=== PATIENT | female | born 1970 | race Hispanic/Latino ===

== ENCOUNTER 2023-10-30 20:08 | Emergency (ER) | payer SELFPAY ==
[2023-10-30 21:34] LABS: Absolute Basophils 0.1 K/uL (0-0.5); Absolute Eosinophils 0.3 K/uL (0-0.5); Absolute Lymphocytes (CBC) 4.1 K/uL (0.7-4.9); Absolute Monocytes 0.5 K/uL (0.1-1.3); Absolute Neutrophil 2.9 K/uL (1.8-8.0); Basophils % 1.4 % (0-1.3); Eosinophils % 4.1 % (0-4.4); Hematocrit 38.2 % (36.0-45.0); Lymphocytes % 51.7 % (15.3-44.8); MCHC 34.1 g/dL (32.0-36.0); MPV 8.7 fL (7.6-11.3); Monocytes % 6.5 % (3.3-12.3); Neutrophils % 36.3 % (41.7-73.7); Nucleated Red Blood Cells % 0.1 % (0-0); Platelets 256 thou/uL (152-406); RBC Red Blood Cell Count 4.19 M/uL (3.86-4.86); Red Cell Distribution Width 13.1 % (12.1-15.2)
[2023-10-30] MEDS ORDERED: ALBUTEROL 2.5 MG/3 ML NEB SOL ONE (21:43)
[2023-10-30] MEDS ORDERED: NA CHLORIDE 0.9% 1,000 ML ONE (21:44)
[2023-10-30] MEDS ORDERED: MECLIZINE HCL 12.5 MG TAB ONE (21:44)
[2023-10-30] MEDS ORDERED: IPRATROPIUM BROM 0.5MG/2.5ML ONE (21:44)
[2023-10-30 21:45] LABS: ALT/SGPT 21 U/L (13-56); AST/SGOT 13 U/L (15-37); Albumin 3.6 g/dL (3.4-5.0); Alkaline Phosphatase 118 U/L (45-117); Anion Gap 8.9 mEq/L (5.0-15.0); BUN Blood Urea Nitrogen 18 mg/dL (7-18); Bicarbonate 25 mEq/L (21-32); Bilirubin Total 0.3 mg/dL (0.2-1.0); Globulin 3.7 g/dL (2.3-3.5); Glomerular Filtration Rate 85 ml/min (=/>90); Glucose Level 112 mg/dL (74-106); Magnesium 1.8 mg/dL (1.6-2.4); Potassium 3.9 mEq/L (3.5-5.1); Protein, Total 7.3 g/dL (6.4-8.2); Sodium Level 137 mEq/L (136-145)
[2023-10-30 21:46] LABS: Bilirubin Direct < 0.2 mg/dL (0-0.2); Bilirubin Indirect, Calculated 0.1 mg/dL (0.2-0.8); Troponin High Sensitivity < 3.0 pg/mL (<58.9)
--- NOTE | 2023-10-30 21:56 | RAD REPORT ---
EXAM DESCRIPTION: Cedric Single View10/30/2023 9:19 pm CLINICAL HISTORY: sob COMPARISON: none FINDINGS: The lungs appear clear of acute infiltrate. The heart is normal size IMPRESSION: No acute abnormalities displayed
--- NOTE | 2023-10-30 22:06 | RAD REPORT ---
EXAM DESCRIPTION: CT - Head Brain Wo Cont - 10/30/2023 9:59 pm CLINICAL HISTORY: Dizziness COMPARISON: none TECHNIQUE: Computed axial tomography of the head was obtained. IV contrast was not requested. All CT scans are performed using dose optimization technique as appropriate and may include automated exposure control or mA/KV adjustment according to patient size. FINDINGS: An intracranial bleed is not seen The ventricles are normal in caliber No significant hypodense areas within the brain visualized No extra-axial fluid collection is noted. Fluid within the sinuses/ mastoids is not seen IMPRESSION: No acute intracranial abnormality is seen If patient's symptoms persist MRI of the brain would be recommended
[2023-10-30] MEDS ORDERED: ACETAMINOPHEN 500 MG TAB ONE (22:27)
--- NOTE | 2023-10-30 23:20 | ER ---
Nurse's Notes [facility] Name: Jessie Sorto Age: 53 yrs Sex: Female : 1970 Arrival Date: 10/30/2023 Time: 20:08 Bed 5 Private MD: Diagnosis: Benign paroxysmal vertigo;Headache Presentation: 10/29 20:23 Chief complaint: Spouse and/or significant other states: headache, dizziness, low blood as6 pressure. Coronavirus screen: At this time, the client does not indicate any symptoms associated with coronavirus-19. Ebola Screen: No symptoms or risks identified at this time. Initial Sepsis Screen: Does the patient meet any 2 criteria? No. Patient's initial sepsis screen is negative. Does the patient have a suspected source of infection? No. Patient's initial sepsis screen is negative. Risk Assessment: Do you want to hurt yourself or someone else? Patient reports no desire to harm self or others. Onset of symptoms was October 30, 2023. 20:23 Method Of Arrival: Ambulatory as6 20:23 Acuity: WAGNER 3 as6 Historical: - Allergies: 20:24 No Known Allergies; as6 - PMHx: 20:24 Headache; as6 - PSHx: 20:24 None; as6 - Immunization history:: Adult Immunizations up to date. - Infectious Disease History:: Denies. - Social history:: Smoking status: Patient denies any tobacco usage or history of. - Family history:: not pertinent. Screenin:54 [facility] ED Fall Risk Assessment (Adult) History of falling in the last 3 months, vc1 including since admission No falls in past 3 months (0 pts) Confusion or Disorientation No (0 pts) Intoxicated or Sedated No (0 pts) Impaired Gait No (0 pts) Mobility Assist Device Used No (0 pt) Altered Elimination No (0 pt) Score/Fall Risk Level 0 - 2 = Low Risk Oriented to surroundings, Maintained a safe environment, Educated pt \T\ family on fall prevention, incl call for assistance when getting out of bed. Abuse screen: Denies threats or abuse. Nutritional screening: No deficits noted. Tuberculosis screening: No symptoms or risk factors identified. Assessment: 20:40 General: Appears in no apparent distress. uncomfortable, Behavior is calm, cooperative. lg3 Pain: Complains of pain in head Pain does not radiate. Neuro: No deficits noted. Chapman Agitation-Sedation Scale (RASS): 0 - Alert and Calm Level of Consciousness is awake, alert, obeys commands, Oriented to person, place, time, situation, Reports dizziness, headache weakness. Cardiovascular: No deficits noted. Reports palpitations, shortness of breath, Heart tones S1 S2 present Capillary refill < 3 seconds Clubbing of nail beds is absent JVD is absent Patient's skin is warm and dry. Respiratory: No deficits noted. Reports shortness of breath Airway is patent Respiratory effort is even, unlabored, Respiratory pattern is regular, symmetrical, Breath sounds are clear bilaterally. GI: No deficits noted. No signs and/or symptoms were reported involving the gastrointestinal system. Abdomen is round non-distended. : No deficits noted. No signs and/or symptoms were reported regarding the genitourinary system. EENT: No deficits noted. No signs and/or symptoms were reported regarding the EENT system. Derm: No deficits noted. No signs and/or symptoms reported regarding the dermatologic system. Skin is intact, is healthy with good turgor, Skin is dry, Skin is normal, Skin temperature is warm. Musculoskeletal: No deficits noted. No signs and/or symptoms reported regarding the musculoskeletal system. Circulation, motion, and sensation intact. Range of motion: intact in all extremities. 22:45 Reassessment: Patient appears in no apparent distress at this time. No changes from lg3 previously documented assessment. Patient and/or family updated on plan of care and expected duration. Pain level reassessed. Patient is alert, oriented x 3, equal unlabored respirations, skin warm/dry/pink. 23:53 Reassessment: Patient appears in no apparent distress at this time. No changes from lg3 previously documented assessment. Patient and/or family updated on plan of care and expected duration. Pain level reassessed. Patient is alert, oriented x 3, equal unlabored respirations, skin warm/dry/pink. Patient states symptoms have improved. Vital Signs: 20:23 BP 117 / 74; Pulse 55; Resp 18 S; Temp 97.9(TE); Pulse Ox 99% on R/A; Weight 86.18 kg as6 (R); Height 5 ft. 2 in. (R); Pain 0/10; 21:17 BP 110 / 61; Pulse 56; Resp 10; Pulse Ox 97% on R/A; Pain 8/10; wm 21:55 BP 109 / 66; Pulse 54; Resp 13; Pulse Ox 97% ; vc1 23:53 BP 110 / 61; Pulse 70; Resp 17 S; Temp 98.1(O); Pulse Ox 100% on R/A; lg3 20:23 Body Mass Index 33.67 (86.18 kg, 160 cm) as6 20:23 Pain Scale: Adult as6 21:17 Pain Scale: Adult ED Course: 20:12 Patient arrived in ED. gm2 20:21 Matthew Spears MD is Attending Physician. rt 20:24 Triage completed. as6 20:25 Arm band placed on. as6 20:40 Door closed. Noise minimized. Warm blanket given. Family accompanied patient. lg3 20:45 EKG done, by ED staff, reviewed by Matthew Spears MD. wm 21:00 Inserted saline lock: 22 gauge in left antecubital area, using aseptic technique. Blood wm collected. 21:14 Basic Metabolic Panel Sent. wm 21:14 CBC with Diff Sent. wm 21:14 LFT's Sent. wm 21:14 Magnesium Sent. wm 21:14 Troponin HS Sent. wm 21:19 XRAY Chest (1 view) In Process Unspecified. EDMS 21:55 Patient has correct armband on for positive identification. Bed in low position. Call vc1 light in reach. Pulse ox on. NIBP on. 22:01 CT Head Brain wo Cont In Process Unspecified. EDMS 22:02 Nimisha Sanchez, RN is Primary Nurse. vc1 23:54 No provider procedures requiring assistance completed. IV discontinued, intact, lg3 bleeding controlled, No redness/swelling at site. Pressure dressing applied. Administered Medications: 21:21 CANCELLED (Physician Discretion): Albuterol-Ipratropium Inhaler 103 mcg (90 mcg)-18 lg3 mcg/actuation Aerosol 3 puffs Inhalation once 22:02 Drug: NS 0.9% IV 1000 ml IV at 1 bolus Per protocol; 1000 mL bolus Route: IV; Rate: 1 vc1 bolus; Site: left antecubital; 23:54 Follow up: IV Status: Completed infusion; IV Intake: 1000ml lg3 22:02 Drug: DuoNeb Nebulize (3:1) (2.5 mg - 0.5 mg) 3 ml Nebulizer once Route: Nebulizer; vc1 23:54 Follow up: Response: No adverse reaction lg3 22:03 Drug: Meclizine PO 50 mg PO once Route: PO; vc1 23:54 Follow up: Response: No adverse reaction; Marked relief of symptoms lg3 22:29 Drug: Acetaminophen PO 1000 mg PO once Route: PO; lg3 23:54 Follow up: Response: No adverse reaction; Marked relief of symptoms lg3 Medication: 21:55 VIS not applicable for this client. vc1 Intake: 23:54 IV: 1000ml; Total: 1000ml. lg3 Outcome: 23:19 Discharge ordered by . rt 23:55 Discharged to home ambulatory, with family, lg3 23:55 Condition: stable 23:55 Discharge instructions given to patient, Instructed on discharge instructions, follow up and referral plans. medication usage, Demonstrated understanding of instructions, follow-up care, medications, Prescriptions given X 1, 23:55 Patient left the ED. lg3 Signatures: Dispatcher [employer] EDMS Aliya Waldron RN RN lg3 Megan Alejandro Ashby, RN RN as6 Nimisha Sanchez RN RN vc1 Matthew Spears MD MD rt Ayanna Wiggins 2 Corrections: (The following items were deleted from the chart) 21:56 21:55 BP 108 / 39; Pulse 52bpm; Resp 13bpm; Pulse Ox 97%; vc1 vc1
--- NOTE | 2023-10-30 23:20 | EDPHYS ---
Physician Documentation [facility] Name: Jessie Sorto Age: 53 yrs Sex: Female : 1970 Arrival Date: 10/30/2023 Time: 20:08 Bed 5 Private MD: ED Physician Matthew Spears HPI: 10/29 21:59 This 53 yrs old Female presents to ER via Ambulatory with complaints of Heart rt palpitations dizziness blood pressure problem. 21:59 Patient presents to the ED with dizziness described as vertigo as well as palpitations, rt shortness of breath and headache. Patient states that her symptoms have mostly resolved, she only reports mild shortness of breath currently. She denies chest pain. Denies other acute complaints, symptoms are moderate in severity, no other aggravating or elevating factors.. Historical: - Allergies: 20:24 No Known Allergies; as6 - PMHx: 20:24 Headache; as6 - PSHx: 20:24 None; as6 - Immunization history:: Adult Immunizations up to date. - Infectious Disease History:: Denies. - Social history:: Smoking status: Patient denies any tobacco usage or history of. - Family history:: not pertinent. ROS: 21:59 Constitutional: Negative for fever, chills, and weight loss, Cardiovascular: Negative rt for chest pain, palpitations, and edema, Abdomen/GI: Negative for abdominal pain, nausea, vomiting, diarrhea, and constipation, MS/Extremity: Negative for injury and deformity, Skin: Negative for injury, rash, and discoloration, Psych: Negative for depression, anxiety, suicide ideation, homicidal ideation, and hallucinations, 21:59 Respiratory: Positive for shortness of breath, Negative for cough, 21:59 Neuro: Positive for dizziness, Negative for loss of consciousness, Exam: 21:59 Constitutional: This is a well developed, well nourished patient who is awake, alert, rt and in no acute distress. Head/Face: Normocephalic, atraumatic. Chest/axilla: Normal chest wall appearance and motion. Nontender with no deformity. No lesions are appreciated. Cardiovascular: Regular rate and rhythm with a normal S1 and S2. No gallops, murmurs, or rubs. Normal PMI, no JVD. No pulse deficits. Respiratory: Lungs have equal breath sounds bilaterally, clear to auscultation and percussion. No rales, rhonchi or wheezes noted. No increased work of breathing, no retractions or nasal flaring. Abdomen/GI: Soft, non-tender, with normal bowel sounds. No distension or tympany. No guarding or rebound. No evidence of tenderness throughout. 21:59 Eyes: Extraocular muscles are intact, 2-3 beats of Ryeqo nystagmus, head impulse and test of skew negative. 21:59 ECG was reviewed by the Attending Physician. 21:59 Neuro: Current nerves II through XII intact, strength and sensation intact in upper and lower extremities, speech normal, no ataxia on [id number], Vital Signs: 20:23 BP 117 / 74; Pulse 55; Resp 18 S; Temp 97.9(TE); Pulse Ox 99% on R/A; Weight 86.18 kg as6 (R); Height 5 ft. 2 in. (R); Pain 0/10; 21:17 BP 110 / 61; Pulse 56; Resp 10; Pulse Ox 97% on R/A; Pain 8/10; wm 21:55 BP 109 / 66; Pulse 54; Resp 13; Pulse Ox 97% ; vc1 23:53 BP 110 / 61; Pulse 70; Resp 17 S; Temp 98.1(O); Pulse Ox 100% on R/A; lg3 20:23 Body Mass Index 33.67 (86.18 kg, 160 cm) as6 20:23 Pain Scale: Adult as6 21:17 Pain Scale: Adult wm MDM: 20:33 Patient medically screened. rt 10/30 01:12 Differential Diagnosis Peripheral vertigo, dehydration. Data reviewed: vital signs, rt nurses notes, lab test result(s), EKG, radiologic studies. Consideration of Admission/Observation Escalation of care including admission/observation considered. Symptoms consistent with a peripheral vertigo, no signs or symptoms suggestive of acute CVA. Does not require admission, workup is benign, patient symptoms have resolved with treatment in the ED.. I considered the following discharge prescriptions or medication management in the emergency department Medications were administered in the Emergency Department. See MAR. Independent interpretation of the following test(s) in the Emergency Department CT Scan: My interpretation is No intracranial hemorrhage seen on interpretation of CT scan images. Counseling: I had a detailed discussion with the patient and/or guardian regarding the historical points, exam findings, and any diagnostic results supporting the discharge/admit diagnosis, lab results, radiology results, the need for outpatient follow up, to return to the emergency department if symptoms worsen or persist or if there are any questions or concerns that arise at home. Response to treatment: the patient's symptoms have markedly improved after treatment. 10/29 20:39 Order name: Basic Metabolic Panel; Complete Time: 21:48 rt 10/29 20:39 Order name: CBC with Diff; Complete Time: 21:48 rt 10/29 20:39 Order name: LFT's; Complete Time: 21:48 rt 10/29 20:39 Order name: Magnesium; Complete Time: 21:48 rt 10/29 20:39 Order name: Troponin HS; Complete Time: 21:48 rt 10/29 20:39 Order name: XRAY Chest (1 view); Complete Time: 22:07 rt 10/29 20:39 Order name: CT Head Brain wo Cont; Complete Time: 22:07 rt 10/29 20:39 Order name: EKG; Complete Time: 20:39 rt 10/29 20:39 Order name: Cardiac monitoring; Complete Time: 21:13 rt 10/29 20:39 Order name: EKG - Nurse/Tech; Complete Time: 21:13 rt 10/29 20:39 Order name: IV Saline Lock; Complete Time: 21:13 rt 10/29 20:39 Order name: Labs collected and sent; Complete Time: 21:14 rt 10/29 20:39 Order name: O2 Per Protocol; Complete Time: 22:03 rt 10/29 20:39 Order name: O2 Sat Monitoring; Complete Time: 21:14 rt EC/15 21:59 Rate is 58 beats/min. Rhythm is regular, Sinus bradycardia with No ectopy. QRS [place] is rt Normal. [place] interval is normal. QRS interval is normal. QT interval is normal. No Q waves. No ST changes noted. Interpreted by me. Administered Medications: 21:21 CANCELLED (Physician Discretion): Albuterol-Ipratropium Inhaler 103 mcg (90 mcg)-18 lg3 mcg/actuation Aerosol 3 puffs Inhalation once 22:02 Drug: NS 0.9% IV 1000 ml IV at 1 bolus Per protocol; 1000 mL bolus Route: IV; Rate: 1 vc1 bolus; Site: left antecubital; 23:54 Follow up: IV Status: Completed infusion; IV Intake: 1000ml lg3 22:02 Drug: DuoNeb Nebulize (3:1) (2.5 mg - 0.5 mg) 3 ml Nebulizer once Route: Nebulizer; vc1 23:54 Follow up: Response: No adverse reaction lg3 22:03 Drug: Meclizine PO 50 mg PO once Route: PO; vc1 23:54 Follow up: Response: No adverse reaction; Marked relief of symptoms lg3 22:29 Drug: Acetaminophen PO 1000 mg PO once Route: PO; lg3 23:54 Follow up: Response: No adverse reaction; Marked relief of symptoms lg3 Disposition Summary: 10/30/23 23:19 Discharge Ordered Notes: Location: Home rt Problem: new rt Symptoms: have improved rt Condition: Stable rt Diagnosis - Benign paroxysmal vertigo rt - Headache rt Followup: rt - With: Private Physician - When: 2 - 3 days - Reason: Discharge Instructions: - Discharge Summary Sheet rt - Benign Positional Vertigo rt - Migraine Headache rt Forms: - Medication Reconciliation Form rt - Antibiotic Education rt - Prescription Opioid Use rt - Patient Portal Instructions rt - Leadership Thank You Letter rt Prescriptions: - Meclizine 25 mg Oral Tablet - take 1 tablet ORAL route every 8 hours As needed; 30 tablet; Refills: 0, rt Product Selection Permitted Signatures: Dispatcher [employer] EDAliya Francisco RN RN lg3 Eris Garrison RN RN as6 Nimisha Sanchez RN RN vc1 Matthew Spears MD MD rt Corrections: (The following items were deleted from the chart) 21:21 20:39 Albuterol-Ipratropium Inhaler 103 mcg (90 mcg)-18 mcg/actuation Aerosol 103 mcg lg3 (90 mcg)-18 mcg/actuation 3 puffs Inhalation once ordered. rt
[2023-10-31 00:48] VITALS: BP 110/61; TEMP 98.1; O2SAT 100
== END 2023-10-30 23:55 | disposition home or self-care (01) ==
LOC: ER 20:08
DX: H81.10 Benign paroxysmal vertigo, unspecified ear (principal); R51.9 Headache, unspecified
CPT/HCPCS: 36415; 70450; 71045; 80048; 80076; 83735; 84484; 85025; 93005; J7030; J7613; J7644; J8597

== ENCOUNTER 2024-07-20 16:39 | Emergency (ER) | payer OTHER ==
--- NOTE | 2024-07-20 17:45 | RAD REPORT ---
EXAM: Chest Single View HISTORY: Cough;Congestion COMPARISON: 10/30/2023 FINDINGS: LUNGS/PLEURA: Airspace disease at the left lung base. MEDIASTINUM: The mediastinal silhouette is within normal limits. CARDIAC: The cardiac silhouette is within normal limits. UPPER ABDOMEN: No significant abnormality. BONES: No acute abnormality. LINES/TUBES/OTHER: N/A IMPRESSION: Airspace disease at left lung base concerning for pneumonia. Suggest 6-8 week follow-up chest radiogr aph to ensure resolution.
[2024-07-20 19:32] LABS: Absolute Basophils 0.1 K/uL (0-0.5); Absolute Lymphocytes (CBC) 1.4 K/uL (0.7-4.9); Absolute Neutrophil 13.3 K/uL (1.8-8.0); Basophils % 0.5 % (0-1.3); Hematocrit 35.5 % (36.0-45.0); Hemoglobin 12.6 g/dL (12.0-15.0); Lymphocytes % 8.9 % (15.3-44.8); MCH 31.3 pg (27.0-35.0); MCHC 35.4 g/dL (32.0-36.0); MCV 88.4 fL (80-100); MPV 8.8 fL (7.6-11.3); Monocytes % 6.2 % (3.3-12.3); Neutrophils % 84.4 % (41.7-73.7); Platelets 208 thou/uL (152-406); RBC Red Blood Cell Count 4.01 M/uL (3.86-4.86); Red Cell Distribution Width 12.9 % (12.1-15.2)
[2024-07-20 19:48] LABS: PT Prothrombin Time 13.1 SECONDS (9.4-12.5); PTT, Activated Partial Thromb 31.6 SECONDS (24.3-36.9); Protime INR 1.25
[2024-07-20 19:55] LABS: Albumin 3.4 g/dL (3.4-5.0); Albumin/Globulin Ratio 0.9 (1.1-1.8); Anion Gap 8.7 mEq/L (5.0-15.0); Bilirubin Total 0.8 mg/dL (0.2-1.0); Globulin 3.9 g/dL (2.3-3.5); Potassium 3.7 mEq/L (3.5-5.1); Protein, Total 7.3 g/dL (6.4-8.2)
[2024-07-20 20:26] LABS: SARS-CoV-2 Antigen CONTROL BLUE LINE VIS/BG OK; SARS-CoV-2 Antigen Rapid Res Negative (Negative)
[2024-07-20] MEDS ORDERED: ACETAMINOPHEN 500 MG TAB ONE (20:57)
[2024-07-20] MEDS ORDERED: CEFTRIAXONE 1000 MG/VIAL ONE (20:57)
[2024-07-20] MEDS ORDERED: ONDANSETRON 4 MG/2 ML VIAL ONE (20:57)
[2024-07-20] MEDS ORDERED: NA CHLORIDE 0.9% 1,000 ML ONE (20:58)
[2024-07-20] MEDS ORDERED: AZITHROMYCIN 250 MG TAB ONE (20:58)
--- NOTE | 2024-07-20 22:09 | EDPHYS ---
Physician Documentation [facility] Name: Jessie Sorto Age: 53 yrs Sex: Female : 1970 Arrival Date: 07/20/2024 Time: 16:39 Bed DX2 Private MD: ED Physician Tank Bunn HPI: 07/20 17:02 This 53 yrs old Female presents to ER via Ambulatory with complaints of Flu kb Symptoms. 17:03 Pt is a 53 year old female who presents for cough, congestion, fever, headache, kb bodyaches, and vomiting that started one week ago. Family member is also sick with similar symptoms. Reports pain to left lower chest with cough. Denies shortness of breath. Historical: - Allergies: 17:02 No Known Allergies; hb - PMHx: 17:02 headache; hb - Immunization history:: Adult Immunizations up to date. - Infectious Disease History:: Denies. - Social history:: Smoking status: Patient denies any tobacco usage or history of. ROS: 17:04 Constitutional: As per HPI kb Exam: 17:04 Constitutional: This is a well developed, well nourished patient who is awake, alert, kb and in no acute distress. Head/Face: Normocephalic, atraumatic. ENT: Moist Mucous membranes Cardiovascular: Regular rate Respiratory: Respirations even and unlabored. No increased work of breathing. Talking in full sentences Abdomen/GI: Soft, non-tender. No distention Skin: Warm, dry with normal turgor. Normal color. MS/ Extremity: Pulses equal, no cyanosis. Neurovascular intact. Full, normal range of motion. Neuro: Awake and alert, GCS 15, oriented to person, place, time, and situation. 22:09 ECG was reviewed by the Attending Physician. kb Vital Signs: 17:00 BP 110 / 66; Pulse 87; Resp 18; Temp 103.2(O); Pulse Ox 96% on R/A; Weight 83.91 kg; hb Height 5 ft. 4 in. ; Pain 5/10; 21:44 BP 105 / 61; Pulse 77; Resp 18 S; Temp 99.2(O); Pulse Ox 100% on R/A; ha1 17:00 Body Mass Index 31.75 (83.91 kg, 162.56 cm) hb 17:00 Pain Scale: Adult hb MDM: 16:48 Medical Screening Exam initiated kb 17:04 Data reviewed: vital signs, nurses notes. kb 22:07 Differential Diagnosis: Bronchitis Influenza Upper Respiratory Infection Pneumonia. kb Consideration of Admission/Observation Escalation of care including admission/observation considered. admission considered for pneumonia. Resp even and unlabored. oxygen 100% on room air. Pt is nontoxic in appearance. Will give oral antibiotics. Pt educated on return precautions. . Counseling: I had a detailed discussion with the patient and/or guardian regarding the historical points, exam findings, and any diagnostic results supporting the discharge/admit diagnosis, lab results, radiology results, the need for outpatient follow up, a family practitioner, to return to the emergency department if symptoms worsen or persist or if there are any questions or concerns that arise at home. 07/20 17:01 Order name: Blood Culture Adult (2) kb 07/20 17:01 Order name: CBC with Diff; Complete Time: 20:08 kb 07/20 17:01 Order name: CMP; Complete Time: 19:57 kb 07/20 17:01 Order name: Lactate w/ 2H reflex if indic.; Complete Time: 20:18 kb 07/20 17:01 Order name: Protime (+inr); Complete Time: 19:49 kb 07/20 17:01 Order name: Ptt, Activated; Complete Time: 19:49 kb 07/20 17:01 Order name: Flu; Complete Time: 20:26 kb 07/20 17:01 Order name: SARS-COV-2 Antigen Rapid; Complete Time: 20:26 kb 07/20 17:01 Order name: Chest Single View XRAY; Complete Time: 17:48 kb 07/20 17:01 Order name: Accucheck; Complete Time: 19:22 kb 07/20 17:01 Order name: EKG - Nurse/Tech; Complete Time: 22:01 kb 07/20 17:01 Order name: IV Saline Lock - Large Bore; Complete Time: 19:22 kb 07/20 17:01 Order name: Labs collected and sent; Complete Time: 19:22 kb 07/20 17:01 Order name: O2 Per Protocol; Complete Time: 19:22 kb 07/20 17:01 Order name: O2 Sat Monitoring; Complete Time: 19:22 kb 07/20 17:01 Order name: Vital Signs; Complete Time: 19:22 kb EC:09 Rate is 75 beats/min. Rhythm is regular. QRS [place] is Normal. [place] interval is normal at kb 158 msec. QRS interval is normal at 100 msec. QT interval is normal at 435 msec. Administered Medications: 20:40 Drug: Acetaminophen PO 1000 mg PO once Route: PO; ha1 20:47 CANCELLED (Duplicate Order): [id number] mg IVPB once over 1 hrs; mix in 250 mL NS kb 21:03 Drug: Ondansetron IVP 4 mg IVP once; over 2 minutes Route: IVP; Site: right antecubital;ha1 21:08 Drug: NS 0.9% IV 1000 ml IV at 1000 ml once; to be given as a bolus over 60 minutes ha1 Route: IV; Rate: 1000 ml; Site: right antecubital; 21:08 Drug: Rocephin IV 1 grams IV at calculated rate once; Given slow IV push per pharmacy ha1 instructions Route: IV; Rate: calculated rate; Site: right antecubital; 21:08 Drug: AZITHromycin PO 500 mg PO once Route: PO; ha1 Disposition Summary: 07/20/24 22:08 Discharge Ordered Notes: Location: Home kb Condition: Stable kb Diagnosis - Pneumonia, unspecified organism kb Followup: kb - With: Emergency Department - When: As needed - Reason: Worsening of condition Followup: kb - With: Private Physician - When: 2 - 3 days - Reason: Recheck today's complaints, Continuance of care, Re-evaluation by your physician Discharge Instructions: - Discharge Summary Sheet kb - Community-Acquired Pneumonia, Adult, [id number] kb Forms: - Medication Reconciliation Form kb - Antibiotic Education kb - Prescription Opioid Use kb - Patient Portal Instructions kb - Leadership Thank You Letter kb Prescriptions: - Zofran 4 mg Oral tablet - take 1 tablet ORAL route every 6 hours As needed; 12 tablet; Refills: 0, kb Product Selection Permitted - Zithromax 500 mg Oral Tablet - take 1 tablet ORAL route once daily for 5 days; 5 tablet; Refills: 0, Product kb Selection Permitted Addendum: 07/22/2024 17:32 I was immediately available for consultation during this patient's visit. I did not e c2 personally see the patient or discuss the patient with the MODESTA. . Signatures: Dispatcher [employer] Chitra Rodriguez, [employer]-C [employer] SE[employer]-Ckb Pilar Saenz, RN RN Dior Foley, COLLEEN RN ha1 Tank Bunn MD MD ec2 Corrections: (The following items were deleted from the chart) 07/20 17:02 17:02 BLOOD CULTURE*+BA.LAB.BRZ ordered. EDMS EDMS 17: 17:02 CBC+H.LAB.BRZ ordered. EDMS EDMS 17: 17:02 COMPREHENSIVE METABOLIC PANEL+C.LAB.BRZ ordered. EDMS EDMS 17: 17:02 LACTATE+C.LAB.BRZ ordered. EDMS EDMS 17: 17:02 PROTIME (+INR)+COAG.LAB.BRZ ordered. EDMS EDMS 17: 17:02 PTT, ACTIVATED+COAG.LAB.BRZ ordered. EDMS EDMS 17:02 17:02 Influenza Screen (A \T\ B)+BA.LAB.BRZ ordered. EDMS EDMS 17:02 17:02 SARS-COV-2 Antigen Rapid+I.LAB.BRZ ordered. EDMS EDMS 17:02 17:02 Chest Single View+RAD.RAD.BRZ ordered. EDMS EDMS 20:47 19:50 Zithromax IVPB 500 mg IVPB once over 1 hrs; mix in 250 mL NS ordered. kb kb
--- NOTE | 2024-07-20 22:09 | ER ---
Nurse's Notes [facility] Name: Jessie Sorto Age: 53 yrs Sex: Female : 1970 Arrival Date: 07/20/2024 Time: 16:39 Bed DX2 Private MD: Diagnosis: Pneumonia, unspecified organism Presentation: 07/20 17:00 Chief complaint: Headache, painful cough, fever, body aches, and N/V x 1 week. hb Coronavirus screen: Client presents with at least one sign or symptom that may indicate coronavirus-19. Standard/surgical mask placed on the client. Provider contacted for isolation considerations. Ebola Screen: No symptoms or risks identified at this time. Initial Sepsis Screen: Does the patient meet any 2 criteria? No. Patient's initial sepsis screen is negative. Does the patient have a suspected source of infection? No. Patient's initial sepsis screen is negative. Risk Assessment: Do you want to hurt yourself or someone else? Patient reports no desire to harm self or others. Onset of symptoms was July 13, 2023. 17:00 Method Of Arrival: Ambulatory hb 17:00 Acuity: WAGNER 3 hb Historical: - Allergies: 17:02 No Known Allergies; hb - PMHx: 17:02 headache; hb - Immunization history:: Adult Immunizations up to date. - Infectious Disease History:: Denies. - Social history:: Smoking status: Patient denies any tobacco usage or history of. Screenin:57 [facility] ED Fall Risk Assessment (Adult) History of falling in the last 3 months, ha1 including since admission No falls in past 3 months (0 pts) Confusion or Disorientation No (0 pts) Intoxicated or Sedated No (0 pts) Impaired Gait No (0 pts) Mobility Assist Device Used No (0 pt) Altered Elimination Score/Fall Risk Level 0 - 2 = Low Risk Oriented to surroundings, Maintained a safe environment, Educated pt \T\ family on fall prevention, incl call for assistance when getting out of bed, Hourly rounding (assess needs \T\ fall precautionary measures) done. Abuse screen: Denies threats or abuse. Denies injuries from another. Nutritional screening: No deficits noted. Tuberculosis screening: No symptoms or risk factors identified. Assessment: 20:20 General: Appears uncomfortable, Behavior is calm, cooperative. Pain: Complains of pain ha1 in body aches Pain currently is 7 out of 10 on a pain scale. Neuro: Level of Consciousness is awake, alert, obeys commands, Oriented to person, place, time, situation. Cardiovascular: Capillary refill < 3 seconds Patient's skin is warm and dry. Respiratory: Airway is patent Respiratory effort is even, unlabored, Respiratory pattern is regular, symmetrical. GI: Abdomen is round non-distended. Derm: Skin is pink, warm \T\ dry. 21:55 Reassessment: Patient and/or family updated on plan of care and expected duration. Pain ha1 level reassessed. Patient is alert, oriented x 3, equal unlabored respirations, skin warm/dry/pink. Patient states feeling better. Patient states symptoms have improved. Vital Signs: 17:00 BP 110 / 66; Pulse 87; Resp 18; Temp 103.2(O); Pulse Ox 96% on R/A; Weight 83.91 kg; hb Height 5 ft. 4 in. ; Pain 5/10; 21:44 BP 105 / 61; Pulse 77; Resp 18 S; Temp 99.2(O); Pulse Ox 100% on R/A; ha1 17:00 Body Mass Index 31.75 (83.91 kg, 162.56 cm) hb 17:00 Pain Scale: Adult hb ED Course: 16:47 Patient arrived in ED. im 16:48 [facility] kb 16:48 Tank Bunn MD is Attending Physician. kb 17:01 Triage completed. hb 17:03 Arm band placed on. hb 17:37 Chest Single View XRAY In Process Unspecified. EDMS 19:00 Second set of blood cultures drawn by me. ty 19:20 Initial lab(s) drawn, by me, sent to lab. First set of blood cultures drawn. ty 19:22 SARS-COV-2 Antigen Rapid Sent. ty 19:22 Flu Sent. ty 19:22 Blood Culture Adult (2) Sent. ty 19:22 CBC with Diff Sent. ty 19:22 CMP Sent. ty 19:22 Lactate w/ 2H reflex if indic. Sent. ty 19:22 Protime (+inr) Sent. ty 19:22 Ptt, Activated Sent. ty 19:23 Inserted saline lock: 20 gauge in right antecubital area, using aseptic technique. ty Blood collected. Flushed with 10 mL NS. 19:23 COVID swab sent to lab. Flu and/or RSV swab sent to lab. ty 19:33 SARS-COV-2 Antigen Rapid Sent. vk 19:33 Flu Sent. vk 19:33 CBC with Diff Sent. vk 19:33 CMP Sent. vk 19:33 Lactate w/ 2H reflex if indic. Sent. vk 19:33 Protime (+inr) Sent. vk 19:33 Ptt, Activated Sent. vk 21:08 Dior Foley RN is Primary Nurse. ha1 22:01 No provider procedures requiring assistance completed. ha1 22:01 EKG done, by ED staff, reviewed by Chitra DELA CRUZ. oe 22:41 Patient has correct armband on for positive identification. Bed in low position. Call ha1 light in reach. Side rails up X 1. Adult w/ patient. 22:41 IV discontinued, intact, bleeding controlled, No redness/swelling at site. Pressure ha1 dressing applied. Administered Medications: 20:40 Drug: Acetaminophen PO 1000 mg PO once Route: PO; ha1 20:47 CANCELLED (Duplicate Order): [id number] mg IVPB once over 1 hrs; mix in 250 mL NS kb 21:03 Drug: Ondansetron IVP 4 mg IVP once; over 2 minutes Route: IVP; Site: right antecubital;ha1 21:08 Drug: NS 0.9% IV 1000 ml IV at 1000 ml once; to be given as a bolus over 60 minutes ha1 Route: IV; Rate: 1000 ml; Site: right antecubital; 21:08 Drug: Rocephin IV 1 grams IV at calculated rate once; Given slow IV push per pharmacy ha1 instructions Route: IV; Rate: calculated rate; Site: right antecubital; 21:08 Drug: AZITHromycin PO 500 mg PO once Route: PO; ha1 Medication: 22:01 VIS not applicable for this client. ha1 Outcome: 22:08 Discharge ordered by . kb 22:40 Discharged to home ambulatory, with family, ha1 22:40 Condition: stable 22:40 Discharge instructions given to patient, Instructed on discharge instructions, follow up and referral plans. medication usage, Demonstrated understanding of instructions, follow-up care, medications, Prescriptions given X 2, 22:43 Patient left the ED. ha1 Signatures: Dispatcher [employer] Chitra Rodriguez, PRINCIPAL JAVA SOFTWARE ENGINEER-C PRINCIPAL JAVA SOFTWARE ENGINEER-Ckb Pilar Saenz, RN RN Ellis Austin Heidy, RN RN ha1 Alaina Christianson Vivian vk Yandell, Tylor ty
[2024-07-20 23:42] VITALS: BP 105/61; TEMP 99.2; O2SAT 100
--- NOTE | 2024-07-21 12:10 | EKG ---
Test Date: 2024-07-20 Test Time: 21:58:19 [place] Lather: KRISTAN MEASUREMENT RESULTS: Intervals: Rate: 75 MA: 158 QRSD: 100 QT: 390 QTc: 435 [place]: P: 62 MA: 158 QRS: 8 T: 29 INTERPRETIVE STATEMENTS: Normal sinus rhythm Low voltage QRS Borderline ECG Compared to ECG 10/30/2023 20:52:15 Sinus bradycardia no longer present Myocardial infarct finding no longer present Electronically Signed On 07-21-24 12:09:39 CLINICAL TECHNOLOGIST by Javy Shaikh
== END 2024-07-20 22:43 | disposition home or self-care (01) ==
LOC: ER 16:39
DX: J18.9 Pneumonia, unspecified organism (principal); Z11.52 Encounter for screening for COVID-19
CPT/HCPCS: 93005; 87040 ×2; 85025; 36415; 85610; 83605; 85730; 80053; 87804 ×2; 71045; 96375; 96374; 99284; 87811; J2405; J7030; J0696